=== PATIENT | male | born 1990 | race Caucasian/White ===

== ENCOUNTER 2018-08-06 12:42 | Emergency (ER) | payer BC ==
[~2018-08-06] VITALS: Ht 185.4 cm; Wt 83.9 kg
[2018-08-06] MEDS ORDERED: CLONAZEPAM 1 MG TABLET ONE (14:14)
--- NOTE | 2018-08-06 14:20 | NUR ---
Patient discharged to home in stable conditon. Written and verbal after care instructions given. Patient verbalizes understanding of instructions.PT WITH FAMILY MEMBER. PT NOT DRIVING
[2018-08-06] MEDS ORDERED: CLONAZEPAM 0.5 MG TABLET PO ONE (14:30)
== END 2018-08-06 14:26 | disposition home or self-care (01) ==
LOC: ER 12:42
DX: F15.93 Other stimulant use, unspecified with withdrawal (principal)
CPT/HCPCS: A4663